=== PATIENT | male | born 1940 | race Hispanic/Latino ===

== ENCOUNTER → 2017-06-26 | Day surgery (SDC) | payer MEDICARE ==
[2017-06-20 10:11] LABS: BASOPHILS % 0.3 % (0.0-1.0); EOSINOPHILS # (AUTO) 0.3 (0.0-0.4); EOSINOPHILS % 3.6 % (0.0-6.0); HEMATOCRIT 39.7 % (38.2-49.6); LYMPHOCYTES # (AUTO) 1.3 (1.0-3.2); LYMPHOCYTES % 17.8 % (18.0-39.1); MEAN CORPUSCULAR HEMOGLOBIN 33.7 pg (28-32); MEAN CORPUSCULAR HGB CONC 35.3 g/dL (31-35); MEAN CORPUSCULAR VOLUME 95.4 fL (81-99); MONOCYTES # (AUTO) 0.6 (0.2-0.8); MONOCYTES % 8.1 % (4.4-11.3); NEUTROPHILS # (AUTO) 4.9 (2.1-6.9); NEUTROPHILS % 69.9 % (38.7-80.0); PLATELET COUNT 225 x10e3/uL (140-360); RED BLOOD COUNT 4.16 x10e6/uL (4.3-5.7); RED CELL DISTRIBUTION WIDTH 11.9 % (11.7-14.4)
[~2017-06-26] MED LIST: ASPIR-LOW81 MG; FLUTICASONE; LIDOCAINE HCL 2% LOCAL INJ 5 ML SDV VIAL INJ ONE; LOSARTAN; METOPROLOL TART50 MG PO; MIDAZOLAM HCL 2 MG/2 ML VIAL ONE; NAPROXEN; PROPOFOL IV EMULSION 10 MG/ML 50 ML VIAL ONE; VITAMIN B-12; VITAMIN D; VITAMIN E
--- OUTSIDE RECORDS SUMMARY | 2017-06-26 06:04 | XMS REPORT | Clinical Summary ---
Author Author [facility] Organization [facility] Address Unknown Phone Unavailable Care Team Providers Care Ordnance Officer Name Role Phone Kyle Pettit DO PCP Allergies No Known Allergies Current Medications Prescription Sig. Disp. Refills Start End Date Status Date losartan (COZAAR) 50 MG 10/30/19 Active tablet 16 metoprolol succinate XL 10/20/19 Active (TOPROL-XL) 50 MG 24 hr 16 tablet tamsulosin (FLOMAX) 0.4 11/18/19 Active mg capsule,extended 16 release 24hr nitrofurantoin Take 100 mg by mouth Active (MACRODANTIN) 100 MG daily. capsule aspirin (ECOTRIN) 81 MG Resume when ok with Dr 03/10/20 Active enteric coated tablet Astudillo 16 polyethylene glycol Use daily per package 03/10/20 Active (MIRALAX) 17 gram packet instructions for 16 constipation. Is over the counter VIAGRA 50 mg tablet 07/19/19 Active 17 fluticasone (FLONASE) 50 10/04/19 Active mcg/actuation nasal spray 17 vitamin E 1000 UNIT Take 1,000 Units by mouth Active capsule daily. cyanocobalamin 100 MCG Take 100 mcg by mouth Active tablet daily. cholecalciferol, vitamin Take 400 Units by mouth Active D3, (VITAMIN D3) 400 unit daily. tablet naproxen (NAPROSYN) 500 Take 1 tablet (500 mg 60 tablet 0 04/29/20 07/04/19 Discontin MG tabletIndications: total) by mouth 2 (two) 16 17 ued Adhesive capsulitis of times a day. both shoulders, Bursitis/tendonitis, shoulder acetaminophen-codeine Take 1-2 tablets by mouth 30 tablet 0 10/08/19 11/07/19 (TYLENOL WITH CODEINE #3) every 4 (four) hours as 17 17 300-30 mg per tablet needed for moderate pain for up to 30 days. acetaminophen-codeine Take 1 tablet by mouth 40 tablet 0 10/19/19 (TYLENOL WITH CODEINE #3) every 6 (six) hours as 17 17 300-30 mg per needed for moderate pain tabletIndications: for up to 10 days. Rotator cuff tear arthropathy, left meloxicam (MOBIC) 15 mg 09/27/19 02/17/20 Discontin tablet 17 17 ued finasteride (PROSCAR) 5 09/27/19 02/17/20 Discontin mg tablet 17 17 ued naproxen (NAPROSYN) 500 Take 1 tablet (500 mg 60 tablet 2 12/08/19 01/07/20 MG tabletIndications: total) by mouth 2 (two) 17 17 Primary osteoarthritis of times a day for 30 days. right knee naproxen (NAPROSYN) 500 Take 500 mg by mouth 2 02/17/20 Discontin MG tablet (two) times a day with 17 ued meals. traMADol-acetaminophen Take 1 tablet by mouth 60 tablet 0 05/05/20 05/25/19 (ULTRACET) 37.5-325 mg every 6 (six) hours as 17 18 per tablet needed for moderate pain for up to 20 days. Active Problems Problem Noted Date Complete tear of left rotator cuff 03/03/2017 Post-operative state 03/03/2017 Primary osteoarthritis of right knee 12/07/2016 Right medial knee pain 12/07/2016 Rotator cuff tear arthropathy 10/18/2016 Internal derangement of left shoulder 10/10/2016 Trochanteric bursitis of left hip 05/06/2016 Left-sided low back pain with left-sided sciatica 05/06/2016 Bursitis/tendonitis, shoulder 04/29/2016 Adhesive capsulitis of both shoulders 04/29/2016 Spinal stenosis, lumbar region, without neurogenic claudication 03/09/2016 Lumbar stenosis 02/10/2016 Synovial cyst 02/10/2016 Encounters Date Type Specialty Care Team Description 06/16/2017 Office Visit Orthopedic Surgery Joey Astudillo MD Spinal stenosis, lumbar region, without neurogenic claudication (Primary Dx) 05/25/2017 Orders Only Orthopedic Surgery Chio Ramirez Spinal stenosis of lumbar region with neurogenic claudication (Primary Dx);retirement current use of anticoagulant 05/23/2017 Office Visit Orthopedic Surgery Flavio Irizarry MD Rotator cuff syndrome of left shoulder (Primary Dx);Adhesive capsulitis of both shoulders;Internal derangement of left shoulder 05/11/2017 Hospital Radiology Joey Astudillo MD Lumbar radiculopathy Encounter 05/05/2017 Office Visit Orthopedic Surgery Joey Astudillo MD Spinal stenosis of lumbar region, unspecified whether neurogenic claudication present (Primary Dx);Left-sided low back pain with left-sided sciatica, unspecified chronicity;Lumbar radiculopathy 05/05/2017 Procedure Pass Radiology 04/25/2017 Office Visit Orthopedic Surgery Flavio Irizarry MD Post- operative state (Primary Dx);Complete tear of left rotator cuff;Adhesive capsulitis of both shoulders 04/24/2017 Orders Only Access Kris Mills MD 03/28/2017 Office Visit Orthopedic Surgery Flavio Irizarry MD Complete tear of left rotator cuff (Primary Dx);Post-operative state 03/03/2017 Office Visit Orthopedic Surgery Flavio Irizarry MD Complete tear of left rotator cuff (Primary Dx);Post-operative state 02/21/2017 Office Visit Orthopedic Surgery Flavio Irizarry MD Left rotator cuff tear arthropathy (Primary Dx) 02/18/2017 Telephone John Curran MD 02/17/2017 Telephone Palmer Gauthier MD 02/16/2017 [facility] Orthopedic Surgery Flavio Irizarry MD Encounter 02/16/2017 Orders Only Orthopedic Surgery Caro Johnson RN Complete tear of left rotator cuff (Primary Dx) 02/16/2017 Anesthesia Orthopedic Surgery Solomon Caballero MD Event 02/16/2017 Procedure Pass Orthopedic Surgery 02/16/2017 Surgery Orthopedic Surgery Flavio Irizarry MD RIGHT SHOULDER ARTHROSCOPY WITH AC JOINT RESECTION AND SUBACROMIAL DECOMPRESSION, oPEN ROTATOR CUFF REPAIR CUFF 02/02/2017 Telephone Orthopedic Surgery Caro Johnson RN 01/03/2017 Office Visit Orthopedic Surgery Flavio Irizarry MD Rotator cuff tear arthropathy, left (Primary Dx);Internal derangement of left shoulder 12/07/2016 Office Visit Orthopedic Surgery Flavio Irizarry MD Primary osteoarthritis of right knee (Primary Dx);Right medial knee pain 10/19/2016 Office Visit Orthopedic Surgery Sandi Ordoñez MD Complete rotator cuff tear of left shoulder (Primary Dx);Left-sided low back pain with left-sided sciatica, unspecified chronicity 10/18/2016 Office Visit Orthopedic Surgery Flavio Irizarry MD Rotator cuff tear arthropathy, left (Primary Dx) 10/13/2016 Hospital Radiology Flavio Irizarry MD Adhesive capsulitis of Encounter both shoulders 10/07/2016 Office Visit Orthopedic Surgery Flavio Irizarry MD Adhesive capsulitis of both shoulders (Primary Dx);Bursitis/tendonitis, shoulder;Internal derangement of left shoulder;Midline low back pain 10/07/2016 Procedure Pass Radiology 09/12/2016 Office Visit Orthopedic Surgery Joey Astudillo MD Lumbar stenosis (Primary Dx) 07/04/2016 Office Visit Orthopedic Surgery Joey Astudillo MD Lumbar stenosis (Primary Dx);Spinal stenosis, lumbar region, without neurogenic claudication after 06/25/2016 Family History Medical History Relation Name Comments Diabetes Mother Heart disease Mother Hypertension Mother Relation Name Status Comments Father Mother Social History Tobacco Use Types Packs/Day Years Used Date Former Smoker Smokeless Tobacco: Never Used Comments: quit 30 yrs ago Alcohol Use Drinks/Week oz/Week Comments Yes 1-2 beers/day Sex Assigned at Date Recorded Not on file Last Filed Vital Signs Vital Sign Reading Time Taken Blood Pressure 109/58 02/16/2017 4:20 PM CDT Pulse 69 02/16/2017 4:20 PM CDT Temperature 36.6 C (97.8 F) 02/16/2017 4:20 PM CDT Respiratory Rate 18 02/16/2017 4:20 PM CDT Oxygen Saturation 95% 02/16/2017 4:20 PM CDT Inhaled Oxygen - - Concentration Weight 70.3 kg (155 lb) 05/11/2017 3:03 PM DIORAMIST Height 160 cm (5' 3") 02/16/2017 9:37 AM CDT Body Mass Index 27.46 05/11/2017 3:03 PM DIORAMIST Plan of Treatment Date Type Specialty Care Team Description 07/04/2017 Office Visit Orthopedic Surgery Flavio Irizarry MD [address] [facility] [address] [place] [address] Health Maintenance Due Date Last Done Comments ZOSTER VACCINE 1998 PNEUMOCOCCAL-13 2003 INFLUENZA VACCINE 12/20/2016 02/02/2012, 02/24/2011, 03/05/2010, Additional history exists PNEUMOCOCCAL Completed 12/08/2006 POLYSACCHARIDE VACCINE AGE 65 AND OVER Implants Implanted Type Area Special Education Teaching Assistant Device Expiration Model / Identifier Date Serial / Lot Kit Bone Grft Lmbr Tprd 2.8ml Sm Human N/A: Spine [employer] 2017 [id number] / Infuse - [id number] - [id number] Tissue Lumbar SPINAL AND [id number] Implanted: Qty: 1 on 03/09/2016 by Implants Joey Acevedo MD [id number] Drafton Dbm Orthoblend Small Defect Human Bilateral: [employer] 2017 [id number] / 5cc - [id number] - [id number] Tissue Spine SPINAL AND [id number] Implanted: Qty: 1 on 03/09/2016 by Implants Lumbar Joey Acevedo MD [id number] Capstone Ptc [id number] - [id number] IPM Posterior: [employer] 06/22/2026 [id number] / Implanted: Qty: 1 on 03/09/2016 by IMPLANT Spine TONGAMOR ERICH / Joey Astudillo MD DEVICES Lumbar [id number] José Miguel [id number] 35mm Perc José Miguel 4.75mm IPM Posterior: [employer] [id number] Ccm - [id number] IMPLANT Spine SOFAMOR DANEK / Implanted: Qty: 1 on 03/09/2016 by DEVICES Benji / Joey Astudillo MD José Miguel [id number] 35mm Perc José Miguel 4.75mm IPM Posterior: [employer] [id number] Ccm - [id number] IMPLANT Spine SOFAMOR DANEK / Implanted: Qty: 1 on 03/09/2016 by Joey Burton MD Quattro Link Knotless Peek [place] IPM N/A: N/A [employer] 2021 CM [id number] / 4.5mm - Sn/A - [id number] IMPLANT MEDICINE n/a / Implanted: Qty: 2 on 02/16/2017 by DEVICES [id number] Flavio Irizarry MD Dermaspan Acd 5x5cm; 1.15mm - Sn/A IPM N/A: N/A [employer] 2018 [id number] - [id number] IMPLANT / Implanted: Qty: 1 on 02/16/2017 by DEVICES n/a / Flavio Irizarry MD [id number] Juggerknot 2.9 - [id number] Orthopedic N/A: N/A [employer] 2020 [id number] / Implanted: Qty: 3 on 02/16/2017 by Trauma MEDICINE / Flavio Irizarry MD Implants [id number] Screw Spinal Canltd Mul-Ax Co-Cr Ti Spinal Posterior: [employer] [id number] 4.75x6.5x40mm - [id number] Implants Spine SPINAL AND 0 / Implanted: Qty: 1 on 03/09/2016 by Lumbar BIOLOGICS / Joey Astudillo MD Screw Spinal Set Brkof Ti 4.75mm Ns Spinal Posterior: [employer] [id number] / - [id number] Implants Spine SPINAL AND / Implanted: Qty: 1 on 03/09/2016 by Lumbar BIOLOGICS Joey Astudillo MD Screw Spinal Canltd Mul-Ax Co-Cr Ti Spinal Posterior: [employer] [id number] 4.75x6.5x40mm - [id number] Implants Spine SPINAL AND 0 / Implanted: Qty: 3 on 03/09/2016 by Lumbar BIOLOGICS / Joey Astudillo MD Screw Spinal Set Brkof Ti 4.75mm Ns Spinal Posterior: [employer] [id number] / - [id number] Implants Spine SPINAL AND / Implanted: Qty: 3 on 03/09/2016 by Lumbar BIOLOGICS Joey Astudillo MD [employer] [facility] Floseal 5ml W/ Humn F2 Surgical N/A: N/A LOU [id number] / - [id number] Implants; BIOSCIENCE / Implanted: Qty: 1 on 03/09/2016 by ExpandJoey Reis MD Extenders; Surgical Wires [employer] [facility] Floseal 5ml W/ Humn F2 Surgical N/A: N/A LOU [id number] / - [id number] Implants; BIOSCIENCE / Implanted: Qty: 1 on 03/09/2016 by Expanders; Joey Astudillo MD Extenders; Surgical Wires Kit Instru Soft [place] 2.9mm Surgical N/A: N/A [employer] 2021 [id number] / Larry - [id number] Implants; MEDICINE / Implanted: Qty: 1 on 02/16/2017 by Expanders; [id number] Flavio Irizarry MD Extenders; Surgical Wires Quattro Suture Passer Needle Suture N/A: N/A [facility] 06/21/2019 - [id number] / Implanted: Qty: 1 on 02/16/2017 by oNoise. / [place] [id number] Quattro Suture Passer Needle Suture N/A: N/A [facility] 06/21/2019 - [id number] / Implanted: Qty: 1 on 02/16/2017 by oNoise. / Flavio Irizarry MD [id number] Procedures Procedure Name Priority Date/Time Associated Diagnosis Comments ARTERIAL LINE Routine 02/16/2017 11:42 AM CDT Procedure Note - Nohemi Russ CRNA - 02/16/2017 11:41 AM CDT Arterial line Performed by: SAMARIA WRIGHT Authorized by: SAMARIA WRIGHT Patient Location: OR Start Time: 02/16/2017 11:37 AM End Time: 02/16/2017 11:40 AM Pre-proced ure: patient identified , IV checked, site and side verified, risks and benefits discussed, procedure verified, surgical consent complete, patient position confirmed, monitors and equipment checked and pre-op evaluation complete MSBT: antiseptic used and hand hygiene performed TIme Out Performed: 02/16/2017 11:30 AM Indication s: Indication s: hemodynami c monitoring Anesthesia : Anesthesia : General Procedure Details: Arterial Line placement: Placed post induction Line placement site: Radial Line placement side: Right Arterial line gauge: 20 G Number of attempts: 1 Ultrasound guidance used: No Post-proce dure: Post-proce dure: Sterile dressing applied Post procedure circulatio n, sensation, movement: Unchanged Patient tolerance: Patient tolerated the procedure well with no immediate complicati ons VA AN PERIPHERAL BLOCK Routine 02/16/2017 PROCEDURE FOR PAIN 10:50 AM CDT Procedure Note - Solomon Caballero MD - 02/16/2017 10:49 AM CDT Peripheral Block Performed by: SOLOMON CABALLERO Authorized by: SOLOMON CABALLERO Patient Location: Block room Reason for Block: at surgeon's request, post-op pain management , procedure for pain Staff: Syed post: SOLOMON CABALLERO Performed by: Syed post Preprocedu re: patient identified , IV checked, site and side verified, risks and benefits discussed, procedure verified, surgical consent complete, patient position confirmed, monitors and equipment checked, pre-op evaluation complete and site marked Peripheral Nerve Block: Patient Position: Supine Prep: ChloraPrep Monitoring : Blood pressure monitoring , continuous pulse oximetry and heart rate Block Type: Interscale ne Laterality : Left Injection Technique: Catheter insertion Procedures : ultrasound guided Ultrasound documentat ion: Images saved on hard disk and printed/pl aced in chart Local Infiltrati on (See MAR for details): Ropivacain e Needle: Needle Type: Pajunk Needle Length: 10 cm Catheter at Skin Depth: 6 cm Assessment : Injection Assessment : Visualized needle/loc al anesthetic surroundin g nerve, intermitte nt aspiration during local anesthetic administra tion, visualized pertinent vascular structures and nerves, no symptoms of intraneura l/intraven ous injection and needle tip visualized at all times during injection of medication Paresthesi a Pain: None Heart Rate Change: No Slow Fractionat ed Injection: Yes Block outcome: No apparent complicati ons, patient comfortabl e and patient tolerated procedure well VA AN PERIPHERAL BLOCK Routine 02/16/2017 POST-OP PAIN 10:50 AM CDT Procedure Note - Solomon Caballero MD - 02/16/2017 10:49 AM CDT Peripheral Block Performed by: SOLOMON CABALLERO Authorized by: SOLOMON CABALLERO Patient Location: Block room Reason for Block: at surgeon's request, post-op pain management , procedure for pain Staff: Syed post: SOLOMON CABALLERO Performed by: Syed post Preprocedu re: patient identified , IV checked, site and side verified, risks and benefits discussed, procedure verified, surgical consent complete, patient position confirmed, monitors and equipment checked, pre-op evaluation complete and site marked Peripheral Nerve Block: Patient Position: Supine Prep: ChloraPrep Monitoring : Blood pressure monitoring , continuous pulse oximetry and heart rate Block Type: Interscale ne Laterality : Left Injection Technique: Catheter insertion Procedures : ultrasound guided Ultrasound documentat ion: Images saved on hard disk and printed/pl aced in chart Local Infiltrati on (See MAR for details): Ropivacain e Needle: Needle Type: Pajunk Needle Length: 10 cm Catheter at Skin Depth: 6 cm Assessment : Injection Assessment : Visualized needle/loc al anesthetic surroundin g nerve, intermitte nt aspiration during local anesthetic administra tion, visualized pertinent vascular structures and nerves, no symptoms of intraneura l/intraven ous injection and needle tip visualized at all times during injection of medication Paresthesi a Pain: None Heart Rate Change: No Slow Fractionat ed Injection: Yes Block outcome: No apparent complicati ons, patient comfortabl e and patient tolerated procedure well RIGHT SHOULDER 02/16/2017 RECURRENT LEFT ROTATOR ARTHROSCOPY WITH AC JOINT 10:30 AM CDT CUFF TEAR M75.12 RESECTION AND SUBACROMIAL DECOMPRESSION, oPEN ROTATOR CUFF REPAIR CUFF Case Notes @[facility] 02/15/17TW Special Needs EST 2.5HRS, CONTINUOUS INTERSCALE NE BLOCK FOR HOME, [facility] ANCHORS, [facility] BMA, GRAFT JACKET VA ARTHROCENTESIS Routine 12/07/2016 Primary osteoarthritis of Results for this ASPIR&/INJ MAJOR JT/BURSA 1:00 PM CDT right knee procedure are in the W/O US results section. VA ARTHROCENTESIS Routine 10/14/2016 Adhesive capsulitis of Results for this ASPIR&/INJ MAJOR JT/BURSA 8:24 AM CDT both shoulders procedure are in the W/O US Bursitis/tendonitis, results section. shoulder Internal derangement of left shoulder after 06/25/2016 Results * Partial thromboplastin time, activated (05/26/2017 10:14 AM) Component Value Ref Range PTT 26 22 - 34 sec Comment: This test has not been validated for monitoring unfractionated heparin therapy. For testing that is validated for this type of therapy, please refer to the Heparin Anti-Xa assay (test code 40432). For additional information, please refer to http://education.ArthaYantra/faq/ACG810 (This link is being provided for informational/educational purposes only.) Specimen Performing Laboratory [facility] Narrative FASTING:NO FASTING: NO * Prothrombin time with INR (05/26/2017 10:14 AM) Component Value Ref Range INR 1.1 Comment: Reference Range 0.9-1.1 Moderate-intensity Warfarin Therapy 2.0-3.0 Higher-intensity Warfarin Therapy 3.0-4.0 Prothrombin time 11.2 9.0 - 11.5 sec Comment: For more information on this test, go to: http://education.Climateminder/faq/LZK180 Specimen Performing Laboratory [facility] Narrative FASTING:NO FASTING: NO * MRI Lumbar Spine W Wo Contrast (05/11/2017 3:54 PM) Specimen Performing Laboratory [facility] [address] [place] [address] Narrative EXAMINATION:MRI LUMBAR SPINE W WO CONTRAST CLINICAL HISTORY:M54.16 Radiculopathylumbar region, low back pain COMPARISON:MRI of the lumbar spine dated dated January 21, 2016 TECHNIQUE: Multiplanar MRI imaging with and withoutIV Gadolinium was performed. FINDINGS: There is a posterior fusion with bilateral pedicle screws and rods between L4 on 5 levels with posterior laminectomy changes. There is minimal retrolisthesis of L3 on L4 level. Vertebral bodies are preserved. Bone marrow is unremarkable with no evidence of acute fracture or suspicious marrow-replacing lesion. . The distal spinal cord appears unremarkable. The conus medullaris terminates at the L1 level and appears unremarkable. L1-2: Diffuse disc bulge with bilateral facet arthropathy. No canal stenosis or foramina narrowing. L2-3: Diffuse disc bulge with bilateral facet arthropathy. There is minimal canal stenosis with no foraminal narrowing. L3-4: Diffuse disc bulge with central broad-based disc protrusion. There is bilateral facet arthropathy and ligamentous hypertrophy. There is a moderate to severe canal stenosis with the potential impingement of the cauda equina. There is a mild retrolisthesis of L3 on L4 level. There is mild bilateral foraminal narrowing. L4-5: Posterior laminectomy with the posterior fusion as described. The intervertebral disc graft appears to be in the left posterolateral region of the disc with evidence of enhancing postsurgical scar in the left epidural space and left foramen potentially encasing the exiting left L4 and traversing left L5 nerve roots. There is no canal stenosis. L5-S1: Mild bilateral facet arthropathy with the ligamentous thickening asymmetric to the right side. There is diffuse disc bulge with central shallow broad-based disc protrusion. There is mild canal stenosis with moderate bilateral lateral recess narrowing. There is moderate severe left foraminal narrowing with potential mass effect on the exiting left L5 nerve root. Mild right foramen is appreciated. Visualized paraspinal soft tissues are unremarkable. IMPRESSION: Posterior fusion between L4 and L5 level with evidence of superjacent and subjacent segment disease at L3-L4 and L5-S1 levels as described. There is moderate to severe canal stenosis at L3-L4 level. There is severe left foraminal narrowing at L5-S1 level. Postoperative changes at L4-L5 level as described with enhancing postsurgical enhancing scar in the left lateral recess and left foramen. [id number] Procedure Note Hm Interface, Radiology Results Incoming - 05/11/2017 4:50 PM DIORAMIST EXAMINATION: MRI LUMBAR SPINE W WO CONTRAST CLINICAL HISTORY: M54.16 Radiculopathy lumbar region, low back pain COMPARISON: MRI of the lumbar spine dated dated January 21, 2016 TECHNIQUE: Multiplanar MRI imaging with and without IV Gadolinium was performed. FINDINGS: There is a posterior fusion with bilateral pedicle screws and rods between L4 on 5 levels with posterior laminectomy changes. There is minimal retrolisthesis of L3 on L4 level. Vertebral bodies are preserved. Bone marrow is unremarkable with no evidence of acute fracture or suspicious marrow-replacing lesion. . The distal spinal cord appears unremarkable. The conus medullaris terminates at the L1 level and appears unremarkable. L1-2: Diffuse disc bulge with bilateral facet arthropathy. No canal stenosis or foramina narrowing. L2-3: Diffuse disc bulge with bilateral facet arthropathy. There is minimal canal stenosis with no foraminal narrowing. L3-4: Diffuse disc bulge with central broad-based disc protrusion. There is bilateral facet arthropathy and ligamentous hypertrophy. There is a moderate to severe canal stenosis with the potential impingement of the cauda equina. There is a mild retrolisthesis of L3 on L4 level. There is mild bilateral foraminal narrowing. L4-5: Posterior laminectomy with the posterior fusion as described. The intervertebral disc graft appears to be in the left posterolateral region of the disc with evidence of enhancing postsurgical scar in the left epidural space and left foramen potentially encasing the exiting left L4 and traversing left L5 nerve roots. There is no canal stenosis. L5-S1: Mild bilateral facet arthropathy with the ligamentous thickening asymmetric to the right side. There is diffuse disc bulge with central shallow broad-based disc protrusion. There is mild canal stenosis with moderate bilateral lateral recess narrowing. There is moderate severe left foraminal narrowing with potential mass effect on the exiting left L5 nerve root. Mild right foramen is appreciated. Visualized paraspinal soft tissues are unremarkable. IMPRESSION: Posterior fusion between L4 and L5 level with evidence of superjacent and subjacent segment disease at L3-L4 and L5-S1 levels as described. There is moderate to severe canal stenosis at L3-L4 level. There is severe left foraminal narrowing at L5-S1 level. Postoperative changes at L4-L5 level as described with enhancing postsurgical enhancing scar in the left lateral recess and left foramen. [id number] * Estimated GFR (05/11/2017 3:16 PM) Component Value Ref Range GFR Non Af Amer 81 mL/min/1.73 m2 GFR Af Amer >90 mL/min/1.73 m2 Comment: Chronic kidney disease: <60 mL/min/1.73m2 Kidney failure: <15 mL/min/1.73m2 The estimated GFR is calculated from the IDMS-traceable Modification of Diet in Renal Disease Equation. The accuracy of the calculation is poor when the creatinine is normal. Calculated values >90 mL/min/1.73m2 are not reported. This equation has not been validated in children (<18 years), women, the elderly (>70 years), or ethnic groups other than Caucasians and Americans. Specimen Performing Laboratory Plasma specimen [facility] DEPARTMENT OF PATHOLOGY AND GENOMIC MEDICINE [address] [place] [phone] * Creatinine level (05/11/2017 3:16 PM) Component Value Ref Range Creatinine 0.9Comment: Testing performed on the ISTAT 0.7 - 1.2 mg/dL instrument by RN [id number]. Specimen Performing Laboratory Plasma specimen [facility] DEPARTMENT OF PATHOLOGY AND GENOMIC MEDICINE [address] [place] [id number] * XR Lumbar Spine 2 Or 3 Vw (05/05/2017 10:47 AM) Only the most recent of 3 results within the time period is included. Specimen Performing Laboratory [facility] [address] [place] [id number] Narrative X-ray show solid fusion at L4-5. Progressive degeneration at L3-4 when compared to prior x-rays * Miscellaneous Imaging Result (04/24/2017) Specimen Performing Laboratory Blood * Large Joint Arthrocentesis (12/07/2016 1:00 PM) Narrative Flavio Irizarry MD 12/07/20161:00 PM Large Joint Arthrocentesis Consent given by: patient Supporting Documentation Indications: pain Procedure Details Ultrasound guided: no Location: knee - R knee Right side: Needle size (right): 25G. Approach: anterolateral Right knee medications administered: 2 mL lidocaine 10 mg/mL (1 %); 3 mg betamethasone acet,sod phos 6 mg/mL (3mg betamethasone acet, sod phos 3mg/ml) Patient tolerance: patient tolerated the procedure well with no immediate complications * XR Knee 1 Or 2 Vw Right (12/07/2016 10:44 AM) Specimen Performing Laboratory [facility] [place] [id number] Narrative Moderate to advanced diffuse degenerative changes * Large Joint Arthrocentesis (10/14/2016 8:24 AM) Narrative Flavio Irizarry MD 10/14/20168:24 AM Large Joint Arthrocentesis Consent given by: patient Supporting Documentation Indications: pain Procedure Details Ultrasound guided: no Location: shoulder - L glenohumeral Left side: Needle size (left): 25 G. Approach: posterior Left shoulder medications administered: 1 mL lidocaine 10 mg/mL (1 %); 3 mg betamethasone acet,sod phos 6 mg/mL (3mg betamethasone acet, sod phos 3mg/ml) Patient tolerance: patient tolerated the procedure well with no immediate complications * MRI Shoulder Wo Contrast Left (10/13/2016 1:23 PM) Specimen Performing Laboratory [facility] [address] [place] [id number] Narrative EXAMINATION:MRI SHOULDER WO CONTRAST LEFT CLINICAL HISTORY:M75.01 Adhesive capsulitis of right shoulder, M75.02 Adhesive capsulitis of left shoulder, left shoulder pain TECHNIQUE:Multiplanar multisequence MR imaging of the left shoulder was performed without contrast. COMPARISON:None. IMPRESSION: ROTATOR CUFF: There are postoperative changes present. There is a re-tear of the supraspinatus tendon, which appears retracted approximately 2 cm. There is at least a partial thickness re-tear of the infraspinatus tendon, but the areas obscured by metal artifacts. There is a edema in the infraspinatus muscle belly, consistent with strain. There is a severe partial tear of the subscapularis tendon. The teres minor tendon is intact. LABRUM: No tear appreciated. BICEPS TENDON: Probably status post tenodesis; correlate with surgical history. Not visualized within the joint space. AC JOINT: Degenerative changes. There is an os acromiale. GLENOHUMERAL JOINT: Mild chondromalacia. No effusion or synovitis. BONE MARROW: Postoperative changes. No fracture. SOFT TISSUES: Postoperative changes. Small amount of fluid in the subacromial- subdeltoid bursa. [facility]-[id number] Procedure Note Interface, Radiology Results Incoming - 10/13/2016 5:05 PM CDT EXAMINATION: MRI SHOULDER WO CONTRAST LEFT CLINICAL HISTORY: M75.01 Adhesive capsulitis of right shoulder, M75.02 Adhesive capsulitis of left shoulder, left shoulder pain TECHNIQUE: Multiplanar multisequence MR imaging of the left shoulder was performed without contrast. COMPARISON: None. IMPRESSION: ROTATOR CUFF: There are postoperative changes present. There is a re-tear of the supraspinatus tendon, which appears retracted approximately 2 cm. There is at least a partial thickness re-tear of the infraspinatus tendon, but the areas obscured by metal artifacts. There is a edema in the infraspinatus muscle belly, consistent with strain. There is a severe partial tear of the subscapularis tendon. The teres minor tendon is intact. LABRUM: No tear appreciated. BICEPS TENDON: Probably status post tenodesis; correlate with surgical history. Not visualized within the joint space. AC JOINT: Degenerative changes. There is an os acromiale. GLENOHUMERAL JOINT: Mild chondromalacia. No effusion or synovitis. BONE MARROW: Postoperative changes. No fracture. SOFT TISSUES: Postoperative changes. Small amount of fluid in the subacromial- subdeltoid bursa. [facility]-[id number] * XR Shoulder 2+ Vw Left (10/07/2016 2:14 PM) Specimen Performing Laboratory [facility] [address] [place] [place] [address] Narrative Evidence of previous decompression and rotator cuff repair with irregularity of the amanda connector joint, irregularity greater tuberosity and an undersurface of the acromion. Metal suture anchor in place. after 06/25/2016 Insurance Payer Benefit Subscriber ID Type Phone Address Plan / Group HUMANA[employer]is [employer] MEDICARE HUMANA [id number] PPO MEDICARE PPO/PFFS/E [facility] Home: [address] [place] [phone]
--- NOTE | 2017-06-26 10:25 | Operative Report ---
DATE OF PROCEDURE: June 26, 2017 REFERRING PHYSICIAN: Dr. Marcell Pettit. PREOPERATIVE DIAGNOSIS: POSTOPERATIVE DIAGNOSIS: PROCEDURE PERFORMED: Colonoscopy and polypectomy. INDICATIONS FOR COLONOSCOPY: Colorectal cancer screening. MEDICATION: Patient was done under MAC. Please see anesthesiologist's note. PROCEDURE: With the patient in lateral decubitus position, flexible fiberoptic Olympus colonoscope was inserted into the rectum with ease and advanced all the way to the cecum. Diverticular disease was noted pretty much throughout the colon. Two polyps were hot biopsied from the cecum. One polyp was hot biopsied from the ascending colon. The transverse and descending other than for diverticular disease appeared to be within normal limits. One polyp was snared from the sigmoid colon. The rectum appeared to be within normal limits. The scope was then retroflexed into the distal rectum and moderate-sized internal hemorrhoids were noted, none of which was actively bleeding. The scope was then straightened out and was subsequently withdrawn. Patient tolerated the procedure well. IMPRESSION 1. Carrillo diverticulosis. 2. Cecal polyps, hot biopsied x 2. 3. Ascending colon polyp, hot biopsied x 1. 4. Sigmoid colon polyp, snared x 1. 5. Internal hemorrhoids, none actively bleeding. PLAN: Followup histology. Initiate high-fiber, low-fat diet. Initiate high-fiber supplement. Patient will need followup colonoscopy in 3 years. Job#: [id number] FARIDA cc:Marcell Pettit DO
== END | disposition home or self-care (01) ==
LOC: OR 06:01
PROVIDERS: ATTEND Internal Medicine Gastroenterology
DX: Z12.11 Encounter for screening for malignant neoplasm of colon (principal); D12.5 Benign neoplasm of sigmoid colon; K57.30 Diverticulosis of large intestine without perforation or abscess without bleeding; K64.8 Other hemorrhoids; I10 Essential (primary) hypertension; R00.1 Bradycardia, unspecified; Z01.810 Encounter for preprocedural cardiovascular examination; Z01.812 Encounter for preprocedural laboratory examination; Z68.26 Body mass index [BMI] 26.0-26.9, adult
CPT/HCPCS: 36415; 45384; 45385; 85025; 88305; 93005; J2001; J2250

== ENCOUNTER 2020-04-12 18:06 | Emergency (ER) | payer MEDICARE ==
[~2020-04-12] VITALS: Ht 160 cm; Wt 66.7 kg
[~2020-04-12 18:06] MED LIST changes: +CYCLOBENZAPRINE5 MG PO; +FOLIC ACID PO; +IRON PO; -LIDOCAINE HCL 2% LOCAL INJ 5 ML SDV VIAL INJ ONE; +MELOXICAM15 MG PO; -MIDAZOLAM HCL 2 MG/2 ML VIAL ONE; -PROPOFOL IV EMULSION 10 MG/ML 50 ML VIAL ONE; +VIT B6 PO
--- NOTE | 2020-04-12 18:18 | Emergency Department Note ---
History of Present Illnes History of Present Illness Chief Complaint: Laceration History of Present Illness This is a 79 year old male s/p fall mechanical with resultant head lac eratoin Historian: Patient, Family Member Arrival Mode: Car Strike Off Machine Operator Required: No Onset (how long ago): minute(s) Location: scalp Radiation: Reports non-radiation Severity: moderate Onset quality: sudden Duration (how long): hour(s) Timing of current episode: constant Progression: unchanged Chronicity: new Context: Reports trauma/injury Relieving factors: none Exacerbating factors: none Associated symptoms: Reports denies other symptoms Treatments prior to arrival: none Past Medical/Family History Physician Review I have reviewed the patient's past medical and family history. Any updates have been documented here. Past Medical History Recent Fever: No Clinical Suspicion of Infectio: No New/Unexplained Change in Ment: No Past Medical History: Hypertension, GERD, Chronic Back Pain Other Medical History: CARPAL TUNNEL NEUROPATHY Past Surgical History: Back Surgery Other Surgery: BILATERAL ROTATOR CUFFS TURP Social History Smoking Cessation: Never Smoker Alcohol Use: None Any Illegal Drug Use: No Other Last Tetanus: UKN Review of Systems Review of Systems Constitutional: Reports no symptoms EENTM: Reports no symptoms Cardiovascular: Reports no symptoms Respiratory: Reports no symptoms Gastrointestinal: Reports no symptoms Genitourinary: Reports no symptoms Musculoskeletal: Reports no symptoms Integumentary: Reports no symptoms Neurological: Reports headache Psychological: Reports no symptoms Endocrine: Reports no symptoms Hematological/Lymphatic: Reports no symptoms Physical Exam Related Data Allergies: Coded Allergies: No Known Allergies (Unverified , 05/24/19) Vital signs reviewed: Yes Physical Exam CONSTITUTIONAL Constitutional: Present well-developed, Present well-nourished HENT HENT: Present normocephalic, Present atraumatic, Present oropharynx clear/moist, Present nose normal HENT L/R: Present left ext ear normal, Present right ext ear normal EYES Eyes: Reports PERRL, Reports conjunctivae normal NECK Neck: Present ROM normal PULMONARY Pulmonary: Present effort normal, Present breath sounds normal CARDIOVASCULAR Cardiovascular: Present regular rhythm, Present heart sounds normal, Present capillary refill normal, Present normal rate GASTROINTESTINAL Abdominal: Present soft, Present nontender, Present bowel sounds normal GENITOURINARY Genitourinary: Present exam deferred SKIN Skin: Present other (12 cm Y shaped scalp laceration with active hemorrhage) MUSCULOSKELETAL Musculoskeletal: Present ROM normal NEUROLOGICAL Neurological: Present alert, Present oriented x 3, Present no gross motor or sensory deficits PSYCHOLOGICAL Psychological: Present mood/affect normal, Present judgement normal Results Laboratory Lab results reviewed: Yes Laboratory comments Laboratory Tests Test 04/12/20 20:51 04/12/20 20:50 04/12/20 20:36 White Blood Count 8.26 x10e3/uL (4.8-10.8) Red Blood Count 3.99 x10e6/uL (4.3-5.7) Hemoglobin 13.4 g/dL (14.0-18.0) Hematocrit 36.8 % (38.2-49.6) Mean Corpuscular Volume 92.2 fL (81-99) Mean Corpuscular Hemoglobin 33.6 pg (28-32) Mean Corpuscular Hemoglobin Concent 36.4 g/dL (31-35) Red Cell Distribution Width 11.6 % (11.7-14.4) Platelet Count 241 x10e3/uL (140-360) Neutrophils (%) (Auto) 79.0 % (38.7-80.0) Lymphocytes (%) (Auto) 13.9 % (18.0-39.1) Monocytes (%) (Auto) 5.9 % (4.4-11.3) Eosinophils (%) (Auto) 0.6 % (0.0-6.0) Basophils (%) (Auto) 0.2 % (0.0-1.0) Neutrophils # (Auto) 6.5 (2.1-6.9) Lymphocytes # (Auto) 1.2 (1.0-3.2) Monocytes # (Auto) 0.5 (0.2-0.8) Eosinophils # (Auto) 0.1 (0.0-0.4) Basophils # (Auto) 0.0 (0.0-0.1) Absolute Immature Granulocyte (auto 0.03 x10e3/uL (0-0.1) Sodium Level 124 mmol/L (136-145) Potassium Level 4.1 mmol/L (3.5-5.1) Chloride Level 93 mmol/L (98-107) Carbon Dioxide Level 21 mmol/L (22-29) Anion Gap 14.1 mmol/L (8-16) Blood Urea Nitrogen 10 mg/dL (7-26) Creatinine 0.82 mg/dL (0.72-1.25) Estimat Glomerular Filtration Rate > 60 ML/MIN (60-) BUN/Creatinine Ratio 12 (6-25) Glucose Level 92 mg/dL (74-118) Calcium Level 8.6 mg/dL (8.4-10.2) Total Bilirubin 1.3 mg/dL (0.2-1.2) Aspartate Amino Transf (AST/SGOT) 23 IU/L (5-34) Alanine Aminotransferase (ALT/SGPT) 17 IU/L (0-55) Alkaline Phosphatase 59 IU/L (40-150) Total Protein 7.2 g/dL (6.5-8.1) Albumin 4.4 g/dL (3.5-5.0) Globulin 2.8 g/dL (2.3-3.5) Albumin/Globulin Ratio 1.6 (0.8-2.0) Prothrombin Time 13.2 seconds (11.9-14.5) Prothromb Time International Ratio 0.95 Coronavirus (PCR) Not detected (NOTDETECTED) Imaging Imaging results reviewed: Yes Impressions [place] [address] Patient Name: BRONSON MOHAN MR #: [id number] : 1940 Age/Sex: 79/M Req #: [id number] Adm Physician: Ordered by: NATALIE STANLEY DO Report #: [id number] Location: ER Room/Bed: Procedure: [id number] CT/CT BRAIN WO Exam Date: 04/12/20 Exam Time: 1929 REPORT STATUS: Signed Exam: Head CT without contrast History: Trauma Comparison studies: None Technique: Axial images were obtained from the skull base to the vertex. Coronal and sagittal images reconstructed from the axial data. Dose modulation, iterative reconstruction, and/or weight based adjustment of the mA/kV was utilized to reduce the radiation dose to as low as reasonably achievable. Radiation dose: Total DLP: 921.4 mGy*cm. Estimated effective dose: DLP x 0.015 Intravenous contrast: None Findings: Scalp: An acute scalp hematoma and laceration centered in the left paramedian parieto-occipital scalp is with overlying surgical lisa in place. No retained hyperdense foreign body. Bones: No fractures, blastic or lytic lesions. Brain sulci: Moderately prominent. Ventricles: An acute 1.2 cm hyperdense hemorrhage is adherent to the ependymal surface of the body of the left lateral ventricle. Small-volume hyperdense hemorrhage also present in the frontal horn of the left lateral ventricle. There is moderate compensatory dilatation of the ventricles due to generalized volume loss. No hydrocephalus at this time. Extra-axial spaces: No masses, no fluid collection. Parenchyma: No mass or acute or chronic cortical insults. Ill-defined and confluent hypodensities in the supratentorial white matter are nonspecific but are most compatible with chronic microvascular ischemic changes. Sellar/suprasellar region: No abnormalities. Craniocervical junction: Patent foramen magnum. No Chiari one malformation. Incidental findings: Chronic inflammatory changes in the right mastoids. Atherosclerotic calcifications in the carotid siphons in the left intradural vertebral artery. IMPRESSION: 1. Left paramedian parieto-occipital scalp hematoma and laceration. No retained hyperdense foreign body or fracture. 2. Acute small volume intraventricular hemorrhage. No hydrocephalus. 3. Moderate generalized parenchymal volume loss. 4. Moderate chronic microvascular ischemic changes. Findings discussed with Dr. Stanley at 8:14 PM on 04/12/2020. Signed by: Dr. Angie Mason M.D. on 04/12/2020 8:26 PM Dictated By: ANGIE MASON MD 25 Transcribed By: LOS on 04/12/202025 COPY TO: NATALIE STANLEY DO~ Procedures 12 Lead ECG Interpretation ECG Interpretation : ECG: ECG 1 Strike Off Machine Operator: Interpreted by ED physician Date: Apr 12, 2020 Time: 20:50 Prior ECG tracings: reviewed Rhythm: sinus rhythm Rate: normal BPM: 71 QRS axis: normal ST segments normal: Yes T waves normal: Yes Clinical Impression: normal ECG Laceration Laceration: Laceration 1 Site: scalp Side: left Size (cm): 12 Description: irregular, other (Y shaped) Depth: simple, single layer Local anesthesia: lidocaine 1% Amount of anesthesia (mL): 3 Pre-repair: wound exposed Skin layer closed with: nylon Size (cm): 3-0 Number of sutures: 10 Technique: simple, interrupted Additional comments 4 lisa were used Critical Care Time Total Critical Care Time (min): 31 Critcal care necessary due to: EMERGENCY MEDICINE NURSE PRACTITIONER failure or compromise Critcal care time spent by me: develop tx plan w patient/surrogate, discussion w consultants, discussion w primary provider, evaluation patient response to tx, examination of patient, obtaining hx from patient/surrogate, order/perform tx or interventions, order/review laboratory studies, order/review radiographic studies Assessment & Plan Medical Decision Making MDM Diff Dx: SDH, Epidural hematoma, SAH, skull fx, Hemorrhagic shock, ACS, arrythmia Reassessment Reassessment time: 21:13 Reassessment S/W Dr Herbert Assessment & Plan Final Impression: (1) Intraventricular hemorrhage (2) Scalp laceration (3) Open wound of scalp, complicated (4) Hyponatremia Depart Disposition: TRANS TO OTHER [facility] Home Meds Reported Medications Cyclobenzaprine Hcl (FLEXERIL) 5 Mg Tablet, PO TID 05/24/19 [Iron] No Conflict Check, 25 MG PO BID 05/24/19 [Folic Acid] No Conflict Check, PO DAILY 05/24/19 [Vit B6] No Conflict Check, PO DAILY 05/24/19 Meloxicam (MELOXICAM) 15 Mg Tablet, 15 MG PO DAILY 05/24/19 [Vitamin D] No Conflict Check, 2000 INTLU DAILY 06/23/17 [Vitamin E] No Conflict Check, 1000 INTLU DAILY 06/23/17 [Vitamin B-12] No Conflict Check, DAILY 06/23/17 [Fluticasone] No Conflict Check, 50 MG PRN 06/23/17 Aspirin (ASPIR-LOW) 81 Mg Tablet., DAILY 06/23/17 [Losartan] No Conflict Check, 50 MG DAILY 06/23/17 NATALIE STANLEY DO Apr 12, 2020 18:18
[2020-04-12] MEDS: LIDOCAINE 1% 5ML-MPF INJ ONE (18:30)
--- OUTSIDE RECORDS SUMMARY | 2020-04-12 18:30 | XMS REPORT | Continuity of Care Document ---
Author Author [facility] t Organization [facility] Address [address] [place] [address] Phone Unavailable Care Team Providers Care Patient Services Assistant Name Role Phone ANGIE GARSIA DO PCP MARK, SOUHEIL Attphys Unavailable MARKREJI Dhillon Attphys Unavailable Ramírez Astudillo MD Attphys MARK, SOUHEIL Admphys Unavailable Payers Payer Name Policy Type Policy Number Effective Date Expiration Date [facility] HU[facility]NA MEDICAREHUMANA MEDICARE PPO/PFFS/ERS [id number] [id number] 2016 00:00:00 Christos Young Problems Condition Name Condition Details Condition Category Status Onset Date Resolution Date Last Treatment Date Treating Clinician Comments Source Spondylolisthesis of lumbar region Spondylolisthesis of lumbar r egion Disease Active 2018-10-26 00:00:00 Linwood palacios [employer] 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 2017-10-31 00:00:00 Christos Young Arthritis of left hand Arthritis of left hand Disease Active 2017-09-19 00:00:[address] Dupuytren's contracture of right hand Dupuytren's contractur e of right hand Disease Active 2017-09-11 00:00:00 Christos Cruzist Trigger finger, right index finger Trigger finger, right index f declan Disease Active 2017-09-11 00:00:00 José Antoniot on Yaz[employer]ism Mass of left hand Mass of left hand Disease Active 2017-09-11 00:00:00 Christos Young Complete tear of left rotator cuff Complete tear of left rotator cuff Disease Active 2017-03-03 00:00:00 José Antoniojo Young Post-operative state Post-operative state Disease Active 00:00:00 Christos Young Primary osteoarthritis of right knee Primary osteoarthritis of right knee Disease Active 2016-12-07 00:00:00 Christos Young Right medial knee pain Right medial knee pain Disease Active 2016-12-07 00:00:00 Christos beal 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 Disease Active 2016-10-18 00:00:00 Christos Young Internal derangement of left shoulder Internal derangement o f left shoulder Disease Active 2016-10-10 00:00:00 Christos Young Trochanteric bursitis of left hip Trochanteric bursitis of left hip Disease Active 2016-05-06 00:00:00 Linwood philip [employer] Left-sided low back pain with left-sided sciatica Left -sided low back pain with left-sided sciatica Disease Active 2016-05-06 00:00:00 Christos Young Bursitis/tendonitis, shoulder Bursitis/tendonitis, shoulder Disease Active 2016-04-29 00:00:00 Christos Young Adhesive capsulitis of 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 Family History Family Member Diagnosis Comments Start Date Stop Date Source Natural brother Heart attack Christos Young Natural mother Diabetes [facility] Natural mother Heart disease Christos Young Natural mother Hypertension Christos Young Natural son Cancer [facility] Social History Social Habit Start Date Stop Date Quantity Comments Source Sex Assigned At Kait muñiz Yazidism Cigarettes smoked current (pack per day) - Reported 00:00:00 2019-03-18 00:00:00 Christos Young Tobacco use and exposure 2019-03-18 00:00:00 2019-03-18 00:00:00 Robb burns used Christos Young Alcohol intake 2019-03-18 00:00:00 2019-03-18 00:00:00 Current drinker of alcohol (finding) Christos Young Tobacco Comment 2016-03-08 00:00:00 2016-03-08 00:00:00 quit 30 yrs a go Christos Young Alcohol Comment 2016-03-08 00:00:00 2016-03-08 00:00:00 1-2 beers/day Christos Young History of tobacco use 1998-06-20 00:00:00 Current smoker Christos Young Smoking Status Start Date Stop Date Source Former smoker 2019-03-18 00:00:00 2019-03-18 00:00:00 Christos Young Medications Ordered Medication Name Filled Medication Name Start Date Stop Da te Current Medication? Ordering Clinician Indication Dosage Frequency Signature (SIG) Comments Components Source nitrofurantoin (MACRODANTIN) 100 MG capsule 2018-12-07 13:24:17 Yes 100mg QD Take 100 mg by mouth daily. Christos Young vitamin E 1000 UNIT capsule 2018-12-07 13:24:17 Yes 1000U QD Take 1,000 Units by mouth daily. Christos Young cyanocobalamin 100 MCG tablet 2018-12-07 13:24:17 Yes 100ug QD Take 100 mcg by mouth daily. Christos Young cholecalciferol, vitamin D3, (VITAMIN D3) 400 unit tablet 2018-12-07 13:24:17 Yes 400U QD Take 400 Units by mouth daily. Christos Young gabapentin (NEURONTIN) 300 mg capsule 2018-11-28 00:00:00 Yes Peripheral axonal neuropathy 300mg Q.[id number] Take 1 capsule (3 00 mg total) by mouth 3 (three) times a day. Christos quijano fluticasone (FLONASE) 50 mcg/actuation nasal spray 2016-09 00:00:00 Yes Christos Ireland thdejanst VIAGRA 50 mg tablet 2016-07-19 00:00:00 Yes Christos Young polyethylene glycol (MIRALAX) 17 gram packet 2016-03-10 00:00:00 Yes Use daily per package instructions for constipation. Is over the counter Christos Young tamsulosin (FLOMAX) 0.4 mg capsule,extended release 24hr 2015-11-18 00:00:00 Yes Christos Young metoprolol succinate XL (TOPROL-XL) 50 MG 24 hr tablet 2015-10-20 00:00:00 Yes Christos osorio Aspirin (Aspir-Low) 81 Mg Tablet. Aspirin (Aspir-Low) 81 Mg Tablet. Yes Daily [facility] Cyclobenzaprine Hcl (Flexeril) 5 Mg Tablet Cyclobenzap rine Hcl (Flexeril) 5 Mg Tablet Yes Three Times A Day C HI [facility] Fluticasone Fluticasone Yes 50 As Needed [facility] Folic Acid Folic Acid Yes Daily I [facility] Iron Iron Yes 25 Twice A Day [facility] Losartan Losartan Yes 50 Daily [facility] Meloxicam 15 Mg Tablet Meloxicam 15 Mg Tablet Yes 15 Daily [facility] Vit B6 Vit B6 Yes Daily [facility] Vitamin B-12 Vitamin B-12 Yes Daily [facility] Vitamin D Vitamin D Yes 2000 Daily [facility] Vitamin E Vitamin E Yes 1000 Daily [facility] Metoprolol Tartrate 50 Mg Tablet, 50 Mg Oral Metoprolo l Tartrate 50 Mg Tablet, 50 Mg Oral 2019-05-24 00:00:00 No 50 Daily [facility] Naproxen , 500 Mg Naproxen , 500 Mg 2019-05-24 00:00:00 No 500 As Needed [facility] Procedures Procedure Date / Time Performed Performing Clinician Sourc e Exploratory laparotomy 2019-06-06 00:00:00 MAURILIO WHITMAN I [facility] ERCP (endoscopic retrograde cholangiopancreatography) 15 00:00:00 REJI MARK [facility] US Gallbladder 2019-06-04 00:00:00 LAURA MATHEWS [facility] Computed tomography of abdomen and pelvis with contrast 2019 00:00:00 REJI MARK [facility] Magnetic resonance cholangiopancreatography (MRCP) wit hout then with contrast 2019-05-29 00:00:00 REJI MARK [facility] EGD BIOPSY SINGLE/MULTIPLE 2019-05-27 00:00:00 REJI MARK [facility] XR LUMBAR SPINE 2 OR 3 VW 2019-05-24 14:02:56 Joey Astudillo Plan of Care Planned Activity Planned Date Details Comments Source Future Scheduled Test 2019-12-21 00:00:00 INFLUENZA VACCINE [code = INFLUENZA VACCINE] Christos Young Future Scheduled Test 2007-02-08 00:00:00 SHINGLES VACCINES (#2) [code = SHINGLES VACCINES (#2)] Christos Young Encounters Start Date/Time End Date/Time Encounter Type Admission Type [facility] Care Department Encounter ID Source 2019-06-04 19:24:00 2019-06-12 12:34:00 Discharged Inpatient 1 TEJAL MARKIL [facility] [id number] [facility] 2019-05-31 08:34:00 2019-05-31 08:34:00 Registered Clinic 3 REJI MARK [facility] [id number] [facility] 2019-05-29 11:01:00 2019-05-29 11:01:00 Registered Clinic 3 REJI MARK [facility] [id number] [facility] 2019-05-27 09:59:00 2019-05-27 09:59:00 Registered Surgical Day Care [facility] [id number] [facility] Results Test Description Test Time Test Comments Results Result Comments Source Sodium Level 2019-06-11 05:53:00 Test Item Sodium Level (test code = 2951-2) 135 136-145 L [facility] Nigxd3953-94-32 05:53:00* Test Item Value Reference Range Interpretation Comments Potassium Level (test code = 2823-3) 3.4 3.5-5.1 L [facility] SystemChloride Pcara7905-48-45 05:53:00* Test Item Value Reference Range Interpretation Comments Chloride Level (test code = 2075-0) 102 98-107 [facility] SystemCarbon Dioxide Lglmw2672-22-39 05:53:00* Test Item Value Reference Range Interpretation Comments Carbon Dioxide Level (test code = 2028-9) 24 22-29 [facility] SystemAnion Wlc7628-21-01 05:53:00* Test Item Value Reference Range Interpretation Comments Anion Gap (test code = 01593-5) 12.4 8-16 [facility] Urea Jrdiddlu2653-19-32 05:53:00* Test Item Value Reference Range Interpretation Comments Blood Urea Nitrogen (test code = 3094-0) 5 7-26 L [facility] SystemCreatinine2020-01-21 05:53:00* Test Item Value Reference Range Interpretation Comments Creatinine (test code = 2160-0) 0.74 0.72-1.25 [facility] SystemBUN/Creatinine Yhdsb1432-51-11 05:53:00* Test Item Value Reference Range Interpretation Comments BUN/Creatinine Ratio (test code = 3097-3) 7 6-25 [facility] SystemEstimat Glomerular Filtration Rate 2019-06-11 05:53:00* Test Item Value Reference Range Interpretation Comments Estimat Glomerular Filtration Rate (test code = 508060315) > 60 >60 Ranges were taken from the National Kidney Disease Education Program and the [facility] Kidney Foundation literature.Reference ranges:60 or greater: Qwhjhn49-91 ( for 3 consecutive months): Chronic kidney disease 15 or less: Kidney failureDeTar Healthcare SystemGlucose Yetjq6877-67-96 05:53:00* Test Item Value Reference Range Interpretation Comments Glucose Level (test code = XWU7548) 101 74-118 [facility] SystemCalcium Jcbxh1025-03-34 05:53:00* Test Item Value Reference Range Interpretation Comments Calcium Level (test code = 41138-6) 8.2 8.4-10.2 L [facility] SystemWhite Blood Fbydz9747-31-82 05:39:00* Test Item Value Reference Range Interpretation Comments White Blood Count (test code = 6690-2) 4.53 4.8-10.8 L [facility] SystemRed Blood Hdrfv6790-95-02 05:39:00* Test Item Value Reference Range Interpretation Comments Red Blood Count (test code = 789-8) 2.69 4.3-5.7 L [facility] SystemHemoglobin2020-01-21 05:39:00* Test Item Value Reference Range Interpretation Comments Hemoglobin (test code = 70100-2) 9.1 14.0-18.0 L [facility] SystemHematocrit2020-01-21 05:39:00* Test Item Value Reference Range Interpretation Comments Hematocrit (test code = 4544-3) 26.2 38.2-49.6 L [facility] SystemMean Corpuscular Lxvycf8993-45-31 05:39:00* Test Item Value Reference Range Interpretation Comments Mean Corpuscular Volume (test code = 787-2) 97.4 81-99 [facility] SystemMean Corpuscular Pdcalffdkx9871-10-47 05:39:00* Test Item Value Reference Range Interpretation Comments Mean Corpuscular Hemoglobin (test code = 785-6) 33.8 28-32 H [facility] SystemMean Corpuscular Hemoglobin Concent 2019-06-11 05:39:00* Test Item Value Reference Range Interpretation Comments Mean Corpuscular Hemoglobin Concent (test code = 786-4) 34.7 31-35 [facility] SystemRed Cell Distribution Yqgud7528-75-45 05:39:00* Test Item Value Reference Range Interpretation Comments Red Cell Distribution Width (test code = 52352-3) 12.3 11.7 -14.4 [facility] SystemPlatelet Kokjz6893-36-89 05:39:00* Test Item Value Reference Range Interpretation Comments Platelet Count (test code = 777-3) 227 140-360 [facility] SystemNeutrophils (%) (Auto)2019-06-11 05:39:00 * Test Item Value Reference Range Interpretation Comments Neutrophils (%) (Auto) (test code = 94843-1) 61.5 38.7-80.0 [facility] SystemLymphocytes (%) (Auto)2019-06-11 05:39:00 * Test Item Value Reference Range Interpretation Comments Lymphocytes (%) (Auto) (test code = 736-9) 24.3 18.0-39.1 [facility] SystemMonocytes (%) (Auto)2019-06-11 05:39:00* Test Item Value Reference Range Interpretation Comments Monocytes (%) (Auto) (test code = 5905-5) 8.2 4.4-11.3 [facility] SystemEosinophils (%) (Auto)2019-06-11 05:39:00 * Test Item Value Reference Range Interpretation Comments Eosinophils (%) (Auto) (test code = 713-8) 4.9 0.0-6.0 [facility] System[facility]ophils (%) (Auto)2019-06-11 05:39:00* Test Item Value Reference Range Interpretation Comments Basophils (%) (Auto) (test code = 706-2) 0.4 0.0-1.0 [facility] SystemIM GRANULOCYTES %2019-06-11 05:39:00* Test Item Value Reference Range Interpretation Comments IM GRANULOCYTES % (test code = IM GRANULOCYTES %) 0.7 0.0- 1.0 [facility] SystemNeutrophils # (Auto)2019-06-11 05:39:00* Test Item Value Reference Range Interpretation Comments Neutrophils # (Auto) (test code = 751-8) 2.8 2.1-6.9 [facility] SystemLymphocytes # (Auto)2019-06-11 05:39:00* Test Item Value Reference Range Interpretation Comments Lymphocytes # (Auto) (test code = 95030-7) 1.1 1.0-3.2 [facility] SystemMonocytes # (Auto)2019-06-11 05:39:00* Test Item Value Reference Range Interpretation Comments Monocytes # (Auto) (test code = 742-7) 0.4 0.2-0.8 [facility] SystemEosinophils # (Auto)2019-06-11 05:39:00* Test Item Value Reference Range Interpretation Comments Eosinophils # (Auto) (test code = 711-2) 0.2 0.0-0.4 [facility] SystemBasophils # (Auto)2019-06-11 05:39:00* Test Item Value Reference Range Interpretation Comments Basophils # (Auto) (test code = 704-7) 0.0 0.0-0.1 [facility] SystemAbsolute Immature Granulocyte (auto 2019-06-11 05:39:00* Test Item Value Reference Range Interpretation Comments Absolute Immature Granulocyte (auto (shruti t code = Absolute Immature Granulocyte (auto) 0.03 0-0.1 [facility] SystemBlood Vrjxpbp8489-53-94 22:15:00* Test Item Value Reference Range Interpretation Comments Blood Culture (test code = 25020057) NO GROWTH AFTER 5 DAYS, FINAL REPORT [facility] SystemTotal Gxdkzhwza6800-15-86 06:46:00* Test Item Value Reference Range Interpretation Comments Total Bilirubin (test code = 1975-2) 1.6 0.2-1.2 H [facility] SystemAspartate Amino Transf (AST/SGOT) 2019-06-09 06:46:00* Test Item Value Reference Range Interpretation Comments Aspartate Amino Transf (AST/SGOT) (test code = Aspartate Amino Transf (AST/SGOT)) 25 5-34 [facility] SystemAlanine Aminotransferase (ALT/SGPT) 2019-06-09 06:46:00* Test Item Value Reference Range Interpretation Comments Alanine Aminotransferase (ALT/SGPT) (test code = 1742-6) 56 0-55 H [facility] SystemTotal Gyrdmir2166-40-12 06:46:00* Test Item Value Reference Range Interpretation Comments Total Protein (test code = 2885-2) 4.7 6.5-8.1 L [facility] SystemAlbumin2020-01-19 06:46:00* Test Item Value Reference Range Interpretation Comments Albumin (test code = 1751-7) 2.2 3.5-5.0 L [facility] SystemGlobulin2020-01-19 06:46:00* Test Item Value Reference Range Interpretation Comments Globulin (test code = 18728-6) 2.5 2.3-3.5 [facility] SystemAlbumin/Globulin Cixha8815-42-51 06:46:00 * Test Item Value Reference Range Interpretation Comments Albumin/Globulin Ratio (test code = 1759-0) 0.9 0.8-2.0 [facility] SystemAlkaline Jbkjdbaiwjl8470-41-07 06:46:00* Test Item Value Reference Range Interpretation Comments Alkaline Phosphatase (test code = 6768-6) 94 40-150 [facility] SystemAmylase Lfnur4624-23-01 07:40:00* Test Item Value Reference Range Interpretation Comments Amylase Level (test code = 1798-8) 115 25-125 [facility] SystemCHOLANGIOGRAM LCRGBM0533-38-11 14:13:00 [facility] [address] [place] [address] Patient Name: BRONSON WHITMAN MR #: [id number] : 1940 Age/Sex: 78/M Req #: [id number] Adm Physician: MAULIK MARK MD Ordered by: MAURILIO WHITMAN MD Report #: [id number] Location: MED/SURG Room/Bed: [facility] Procedure: [id number] DX/CHOLANGIOGRAM INTROP Exam Date: 06/06/19 Exa m Time: 1140 REPORT STATUS: Signed Intraoperative cholangiogram. CLINICAL HISTORY: [id number] C-ARM ASSIST INTRAOPERATIVE CHOLANGIOGRAM/CBDE. FINDINGS: 7 fluoroscopicall y acquired images were acquired by the referring physician. Images demonstrate opacification of the common hepatic and common bile ducts via a catheter with in the cystic duct. Initial images demonstrate a round filling defect within t he CBD. In subsequent images the filling defect is no longer seen and contrast is seen passing into the adjacent duodenum. Fluoroscopy was not performed by the undersigned. Fluoroscopy time: 50 seconds. 7 images. Signed by: Steve Dodson on 06/06/2019 2:17 PM Dictated By: NATALIE wright Signed By: NATALIE DODSON MD on 06/06/191416 Transcribed By: LOS on 0 06/06/191416 COPY TO: MAURILIO WHITMAN MD Differential Total Cells Gznzotc1669-20-93 08:38:00* Test Item Value Reference Range Interpretation Comments Differential Total Cells Counted (test code = Sandra tial Total Cells Counted) 100 [facility] SystemNeutrophils % (Manual)2019-06-05 08:38:00 * Test Item Value Reference Range Interpretation Comments Neutrophils % (Manual) (test code = 95777-3) 89 40-74 H [facility] SystemLymphocytes % (Manual)2019-06-05 08:38:00 * Test Item Value Reference Range Interpretation Comments Lymphocytes % (Manual) (test code = 737-7) 6 19-48 L [facility] SystemMonocytes % (Manual)2019-06-05 08:38:00* Test Item Value Reference Range Interpretation Comments Monocytes % (Manual) (test code = 744-3) 4 3.4-9.0 [facility] SystemEosinophils % (Manual)2019-06-05 08:38:00 * Test Item Value Reference Range Interpretation Comments Eosinophils % (Manual) (test code = 714-6) 1 0-7 [facility] SystemPlatelet Dwujrijx6327-18-02 08:38:00* Test Item Value Reference Range Interpretation Comments Platelet Estimate (test code = 93345-5) ADEQUATE [facility] SystemPlatelet Morphology Dpxyycx2381-39-80 08:38:00* Test Item Value Reference Range Interpretation Comments Platelet Morphology Comment (test code = 21213-5) NORMAL [facility] SystemRed Cell Morphology Kkzeahu2635-95-96 08:38:00* Test Item Value Reference Range Interpretation Comments Red Cell Morphology Comment (test code = 6742-1) NORMAL [facility] SystemDirect Twnuggmhy9331-49-60 07:21:00* Test Item Value Reference Range Interpretation Comments Direct Bilirubin (test code = 62672-0) 2.3 0.0-0.5 H [facility] SystemCHEST SINGLE (PORTABLE)2019-06-05 06:35:00 [facility] [address] [address] Patient Name: BRONSON WHITMAN MR #: [id number] : 1940 Age/Sex: 78/M Req #: [id number] Adm Physician: HALLIE MATSON NP Ordered by: HALLIE MATSON CUPROUS CHLORIDE HELPER Report #: [id number] Location: [facility] Room/Bed: [place] [address] Procedure: [id number] DX/CHEST SINGLE (PORTABLE) Exam Date: Exam Time: REPORT STATUS: Signed Examinati on: Single AP view of the chest. COMPARISON: None. INDICATION: Shortne ss of breath, stomach pain IMPRESSION: 1. Lines and Tubes: None 2. Lungs are grossly clear. No consolidation or effusion. 3. Cardiomedias tinal silhouette is normal. Pulmonary vasculature is normal. Tortuous thorac ic aorta. 4. No acute bony abnormalities. [place] screw is noted in the left h umeral head. Signed by: Dr. Solomon Buenrostro M.D. on 06/05/2019 6:36 AM Dictated By: SOLOMON BUENROSTRO MD 0636 Transcribed By: LOS on 06/05/19635 COPY TO: HALLIE MELTON CUPROUS CHLORIDE HELPER Prothrombin Wsru0483-67-52 05:54:00* Test Item Value Reference Range Interpretation Comments Prothrombin Time (test code = 5902-2) 13.3 11.9-14.5 [facility] SystemProthromb Time International Ratio 2019-06-05 05:54:00* Test Item Value Reference Range Interpretation Comments Prothromb Time International Ratio (test code = 6301-6) 0.96 Oral Anticoagulant Therapy INR Values:1. Low Intensity Therapy 1.5 - 2.02 . Moderate Intensity Therapy 2.0 - 3.03. High Intensity Therapy(1) 2.5 - 3. 54. High Intensity Therapy(2) 3.0 - 4.05. Panic Value INR > 5.0 [facility] SystemActivated Partial Thromboplast Time 2019-06-05 05:54:00* Test Item Value Reference Range Interpretation Comments Activated Partial Thromboplast Time (test code = 45509-9) 33.2 23.8-35.5 [facility] SystemLactic Acid Fdoak3794-85-53 22:38:00* Test Item Value Reference Range Interpretation Comments Lactic Acid Level (test code = Lactic Acid Level) 0.8 0.5- 2.0 [facility] SystemBand Neutrophils %2019-06-04 19:26:00* Test Item Value Reference Range Interpretation Comments Band Neutrophils % (test code = 764-1) 11 [facility] SystemUS EOZVZJAZRZY6294-95-05 18:08:00 [facility] [address] [place] [address] Patient Name: BRONSNO WHITMAN MR #: [id number] : 1940 Age/Sex: 78/M Req #: [id number] Adm Physician: Ordered by: LAURA MATHEWS DO Report #: [id number] Location: ER Room/Bed: Procedure: [id number] 4 US/US GALLBLADDER Exam Date: 06/04/19 Exam Time: 1 732 REPORT STATUS: Signed EXAM: Gallbladder Ultrasound INDICATION: Abdominal pain. Check for gallstone in ga llbladder neck. check for SIN COMPARISON: CT scan May 31, 2019. MRI a nd/or 2019. TECHNIQUE: Transverse and longitudinal images of the gallbladde r were obtained. FINDINGS: Liver: Normal in size and appearance measuring 13.8 cm Gallbladder: Stones/Sludge: Multiple stones are seen in the neck of the gallbladder. Sludge is also seen in the lumen of the gallbla dder. Mild amount of pericholecystic fluid. Wall: 0.4 cm. Dilated Appearan ce: No hydrops. Sonographic Wu's Sign: Negative Bile Ducts: Intra hepatic Ducts: No dilatation Extrahepatic Ducts: Common bile duct measures 0.8 cm, dilated Free Fluid: No ascites or pleural effusion Right kidney normal in appearance measuring 10.8 cm. Pancreas and abdominal aorta not w ell seen. IMPRESSION: Multiple gallstones in the neck of the gallbladder with gallbladder sludge, pericholecystic fluid and dilated common bile duct. N o definite stone is seen in the common bile duct. Signed by: Dr. Chris bhat M.D. on 06/04/2019 6:11 PM Dictated By: CHRIS GUTIERREZ MD, MD Electron ically Signed By: CHRIS GUTIERREZ MD, MD on 06/04/191810 Transcribed By: LOS on 06/04/191810 COPY TO: LAURA MATHEWS, Urine WBC 2019-06-04 17:04:00* Test Item Value Reference Range Interpretation Comments Urine WBC (test code = 5821-4) NONE 0-5 [facility] System[facility] [id number] 17:04:00* Test Item Value Reference Range Interpretation Comments Urine RBC (test code = 42873-9) NONE 0-5 [facility] System[facility] Zpibbdkz3222-83-82 17:04:00* Test Item Value Reference Range Interpretation Comments Urine Bacteria (test code = 19597-2) RARE NONE [facility] System[facility] Epithelial Iqrla3212-85-23 17:04:00 * Test Item Value Reference Range Interpretation Comments Urine Epithelial Cells (test code = 67618-1) NONE NONE [facility] System[facility] Njqdc1255-47-56 16:55:00* Test Item Value Reference Range Interpretation Comments Urine Color (test code = 5778-6) YELLOW YELLOW [facility] System[facility] Liwafce9361-63-95 16:55:00* Test Item Value Reference Range Interpretation Comments Urine Clarity (test code = 83966-2) SL CLOUDY CLEAR H [facility] Specific Ufnogre5050-89-86 16:55:00 * Test Item Value Reference Range Interpretation Comments Urine Specific [place] (test code = 5811-5) 1.015 1.010-1.02 5 [facility] SystemU[facility] cS8912-39-18 16:55:00* Test Item Value Reference Range Interpretation Comments Urine pH (test code = 97491-4) 7 5-7 [facility] [id number] 16:55:00* Test Item Value Reference Range Interpretation Comments Urine Leukocyte Esterase (test code = 5799-2) NEGATIVE NEGATIVE [facility] [id number] 16:55:00* Test Item Value Reference Range Interpretation Comments Urine Nitrite (test code = 58160-8) NEGATIVE NEGATIVE [facility] [id number] 16:55:00* Test Item Value Reference Range Interpretation Comments Urine Protein (test code = 5804-0) NEGATIVE NEGATIVE [facility] Glucose (UA)2019-06-04 16:55:00* Test Item Value Reference Range Interpretation Comments Urine Glucose (UA) (test code = 2349-9) NEGATIVE NEGATIVE [facility] [id number] 16:55:00* Test Item Value Reference Range Interpretation Comments Urine Ketones (test code = 41571-2) NEGATIVE NEGATIVE [facility] [id number] 16:55:00* Test Item Value Reference Range Interpretation Comments Urine Urobilinogen (test code = 68059-6) 1 0.2-1 [facility] [id number] 16:55:00* Test Item Value Reference Range Interpretation Comments Urine Bilirubin (test code = 1978-6) NEGATIVE NEGATIVE [facility] [id number] 16:55:00* Test Item Value Reference Range Interpretation Comments Urine Blood (test code = 35706-4) TRACE NEGATIVE H [facility] [id number] 10:33:00 [facility] [address] [address] Patient Name: BRONSON WHITMAN MR #: [id number] : 1940 Age/Sex: 78/M Req #: [id number] Adm Physician: Ordered by: REJI MARK MD Report #: [id number] Location: CT Room/Bed: Procedure: [id number] CT/CT ABDOMEN/PELVIS W Exam Date: 05/31/19 Exam Time : 1005 REPORT STATUS: Signed EXA M: CT Abdomen and Pelvis WITH intravenous contrast INDICATION: Abdominal pain COMPARISON: MRCP 05/29/2019 TECHNIQUE: Abdomen and pelvis were scan carrie utilizing a multidetector helical scanner from the lung base to the pubic symphysis after administration of IV contrast. Coronal and sagittal reformatio ns were obtained. Routine protocol was performed. Scan was performed during po rtal venous phase. IV CONTRAST: 100mL of Isovue 370 ORAL CONTRAST: W ater RADIATION DOSE: Total DLP: 333.9 mGy*cm Dose modulation, itera tive reconstruction, and/or weight based adjustment of the mA/kV was utilized to reduce the radiation dose to as low as reasonably achievable. FINDING S: LOWER THORAX: Normal. HEPATOBILIARY: Mild diffuse hepatic steatosis. N o focal liver lesion. No biliary ductal dilation. Cholelithiasis without CT ev idence of cholecystitis. SPLEEN: No splenomegaly. PANCREAS: No focal m asses or ductal dilatation. ADRENALS: No adrenal nodules. KIDNEYS/URETERS : No hydronephrosis, stones, or solid mass lesions. Subcentimeter bilateral re nal cysts. PELVIC ORGANS/BLADDER: Unremarkable. PERITONEUM / RETROPERITON EUM: No free air or fluid. LYMPH NODES: No lymphadenopathy. VESSELS: Diffuse atherosclerotic calcifications of the nonaneurysmal abdominal aorta and major branches. GI TRACT: Diverticulosis without CT evidence of diverticulitis. This includes right-sided diverticulosis. No abnormal bowel thickening. No bow el obstruction. BONES AND SOFT TISSUES: No acute osseous injury. Status pos t posterior decompression and fusion involving L3-L5. Old healed left pelvic f ractures. Degenerative changes of the visualized spine. IMPRESSION: No acute findings in the abdomen or pelvis. Cholelithiasis without CT evidence of cholecystitis. Mild diffuse hepatic steatosis. Diverticulosis wit hout CT evidence of diverticulitis, including right-sided diverticulosis. Signed by: Kyle Dow MD on 05/31/2019 10:39 AM Dictated By: KYLE DOW MD 103 Transcribed By: SASHA MÉNDEZ on 05/31/19 1039 COPY TO: REJI MARK MD MRI MRCP [facility] 2019-05-29 15:46:[address] [address] Patient Name: BRONSON WHITMAN MR #: [id number] : 1940 Age/Sex: 78/M Req #: [id number] Adm Physician: Ordered by: REJI MARK MD Report #: [id number] Location: MRI Room/Bed: Procedure: [id number] MRI/MRI MRCP [facility] Exam Date: Exam Time: REPORT STATUS: Signed EXAM: MRI of the abdo men with and without contrast. INDICATION: Abdominal pain. COMPARISON: None. TECHNIQUE: Multiplanar and multisequence imaging was performed of the abdomen before and after administration of intravenous contrast. MRCP seri es included. IV Contrast: 13 cc of MultiHance Oral Contrast: None. M edications: None DISCUSSION: Limited study due to motion artifact. L OWER THORAX: Unremarkable. HEPATOBILIARY: Heterogeneous liver parenchyma. No definite focal mass. No intrahepatic biliary dilatation. Common bile left is distended up to 9 mm. There is a 6 mm filling defect within mid common bile duct (series 8, image 22). GALLBLADDER: Gallbladder is distended. There are multiple dependent small gallstones within gallbladder. No wall thicken ing. SPLEEN: No splenomegaly. PANCREAS: No focal masses or ductal dil atation. ADRENALS: No adrenal nodules KIDNEYS/URETERS: Kidneys e nhance symmetrically. No hydronephrosis. No renal mass. Subcentimeter left re nal mid to inferior pole cyst. Nonspecific mild bilateral perinephric edema. GI TRACT: Visualized bowel loops are unremarkable. No evidence of bowel o bstruction. LYMPH NODES: No lymphadenopathy. VESSELS: Tortuous abdomin al aorta. No aneurysmal dilatation. PERITONEUM / RETROPERITONEUM: No free a ir or fluid. BONES: Lower lumbar spine fixation hardware. SOFT TISSUES : Unremarkable. 2.6 x 2.6 cm T2 hyperintense cystic structure to the left of t he L5-S1 (series 8, image 7). IMPRESSION: Cholelithiasis withou t evidence of cholecystitis. Choledocholithiasis with mild dilatation of commo n bile duct. Signed by: Dr. Santana Mansfield MD on 05/29/2019 3:57 PM Dictated By: SANTANA MANSFIELD MD [id number] COPY TO: TONIO MARK MD
--- OUTSIDE RECORDS SUMMARY | 2020-04-12 18:30 | XMS REPORT | Clinical Summary ---
Author Author [facility] Address Unknown Phone Unavailable Care Team Providers Care Ethylbenzene Converter Helper Name Role Phone Marcell Pettit DO PCP Allergies No Known Active Allergies Medications End Date Status Medication Sig Dispensed Refills Start Date Active metoprolol succinate XL 0 (TOPROL-XL) 50 MG 24 hr 6 tablet Active tamsulosin (FLOMAX) 0.4 0 mg capsule,extended 6 release 24hr Active nitrofurantoin Take 100 mg 0 (MACRODANTIN) 100 MG by mouth capsule daily. Active polyethylene glycol Use daily per 0 (MIRALAX) 17 gram packet package 6 instructions for constipation. Is over the counter Active VIAGRA 50 mg tablet 0 7 Active fluticasone (FLONASE) 50 0 mcg/actuation nasal spray 7 Active vitamin E 1000 UNIT Take 1,000 0 capsule Units by mouth daily. Active cyanocobalamin 100 MCG Take 100 mcg 0 tablet by mouth daily. Active cholecalciferol, vitamin Take 400 0 D3, (VITAMIN D3) 400 unit Units by tablet mouth daily. Active gabapentin (NEURONTIN) Take 1 270 capsule 3 300 mg capsule (300 9 capsuleIndications: mg total) by Neuropathic pain, Lumbar mouth 3 stenosis with neurogenic (three) times claudication, Peripheral a day. 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 right hand 09/19/2017 Arthritis of left hand 09/19/2017 Dupuytren's contracture of right hand 09/11/2017 Trigger finger, right index finger 09/11/2017 Mass of left hand 09/11/2017 Complete tear of left rotator cuff 03/03/2017 Post-operative state 03/03/2017 Primary osteoarthritis of right knee 12/07/2016 Right medial knee pain 12/07/2016 Rotator cuff tear arthropathy 10/18/2016 Internal derangement of left shoulder 10/10/2016 Trochanteric bursitis of left hip 05/06/2016 Left-sided low back pain with left-sided sciatica Bursitis/tendonitis, shoulder 04/29/2016 Adhesive capsulitis of both shoulders 04/29/2016 Lumbar stenosis with neurogenic claudication 016 Lumbar stenosis 02/10/2016 Synovial cyst 02/10/2016 Encounters Care Team Description Date Type Specialty Joey Astudillo MD Chronic bilateral low back pain without sciatica (Primary Dx) 05/24/2019 Office Visit Orthopedic Surgery after 04/12/2019 Surgical History Surgery Date Site/Laterality Comments ORTHOPEDIC SURGERY LUMBAR SPINE SURGERY SHOULDER OPEN ROTATOR Bilateral CUFF REPAIR TIBIA FRACTURE SURGERY Left with plate and screws CERVICAL LAMINECTOMY 2014 FUSION, SPINE, LUMBAR, 03/09/2016 Spine Procedu re: EXCISION OF SYNOVIAL CYST L5-S1 WITH A INTERBODY, TRANSFORAMINAL Lumbar/N/A REDO DECOMP RESSIVE LUMBAR LAMINECTOMY AND APPROACH DISCECTOMY L4-L5 L5-S1 WITH LATERAL TRANSVERSE FUSION WITH PEDICAL SCREW FIXATION L4-L 5 POSSIBLE L5-S1 INTERBODY FUSION WITH CAGES POSSI BLEW L5-S1 ; Surgeon: Joey Astudillo MD; Loca tion: [facility] OR; Service: Orthopedics; Late rality: N/A; Medical devices from this surgery are i n the Implants section. ARTHROSCOPY, SHOULDER 02/16/2017 Shoulder/Left Procedur e: RIGHT SHOULDER ARTHROSCOPY WITH AC JOINT RESECTION AND SUBACROMIAL DECOMPR ESSION, oPEN ROTATOR CUFF REPAIR CUFF ; Surge on: Flavio Irizarry MD; Location: [facility] OR; Service: Orthopedics; Laterality: Left ; Medical devices from this surgery are i n the Implants section. LAMINECTOMY, LUMBAR 11/28/2018 Spine Procedure: Redo Decompressive Lumbar Laminectomy Lumbar/Posterio and Discectomy Level L3-4 and lateral transverse r fusion with pedicle screw f ixation Level L3-4 and interbody fusion with cages Level L3-4; Surgeon: Joey Astudillo MD; Location: [facility] OR; Service: Orthopedics; Laterality: Post erior; Medical devices from this surgery are i n the Implants section. 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 Lumbar stenosis with neurogenic 03/09/2016 claudication TIA (transient ischemic attack) 30 yrs ago Family History Medical History Relation Name Comments Heart attack Brother Ja Whitman Heart attack Brother Salvador Whitman Heart attack Brother Chris Whitman Diabetes Mother Toña Whitman Heart disease Mother Toña Whitman Hypertension Mother Toña Whitman Cancer Son Wood Whitman Relation Name Status Comments Brother Ja Whitman Brother Salvador Whitman Brother Chris Whitman Father Mother Toña Whitman Social History Date Tobacco Use Types Packs/Day Years Used Quit: 06/20/1998 Former Smoker Cigarettes 1.5 0 Smokeless Tobacco: Never Used Comments: quit 30 yrs ago Drinks/Week oz/Week Comments Alcohol Use 6 Cans of beer 6.0 1-2 beers/day Yes Sex Assigned at Date Recorded Not on file Last Filed Vital Signs Not on file Plan of Treatment Health Maintenance Due Date Last Done Comments SHINGLES VACCINES (#2) 02/08/2007 12/08/2006 INFLUENZA VACCINE 12/21/2019 02/02/2012, 02/24/2011, 03/05/2010 65+ PNEUMOCOCCAL VACCINE Completed 12/08/2006 Implants Device Identifier Shelf Expiration Date Model / Serial / L ot Implanted Type Area Manufactur er 08/20/2017 [id number] / [id number] / [id number] Kit Bone Grft Lmbr Tprd 2.8ml Sm Human N/A: Spine MEDTR[employer]IC Infuse - [id number] - [id number] Tissue Lumbar SPINAL AND Implanted: Qty: 1 on 03/09/2016 by Implants BIO Joey Ward MD at [facility] 10/30/2017 [id number] / [id number] / [id number] Drafton Dbm Orthoblend Small Defect Human Bilateral: MED[employer] 5cc - [id number] - [id number] Tissue Spine Lumbar SPINAL AND Implanted: Qty: 1 on 03/09/2016 by Implants Joye Mchugh MD at [facility] 08/20/2019 [id number] / / [id number] Kit Bone Graft Lumbar Tapered 2.8mm Human Posterior: [employer] Small Infuse - [id number] Tissue Spine Lumbar SPIN AL AND Implanted: Qty: 1 on 11/28/2018 by Implants Joey Mchugh MD at [facility] 06/22/2026 [id number] / / [id number] Capstone Ptc 62w10xa - [id number] IPM Posterior: [employer] Implanted: Qty: 1 on 03/09/2016 by IMPLANT Spine Lumba r TONGAMOR Joey Astudillo MD at [facility] [id number] / / José Miguel [id number] 35mm Perc José Miguel 4.75mm IPM Posterior: [employer] Ccm - [id number] IMPLANT Spine Lumbar SOFAMOR Implanted: Qty: 1 on 03/09/2016 by DEVICES Joey Dye MD at [facility] [id number] / / José Miguel [id number] 35mm Perc José Miguel 4.75mm IPM Posterior: [employer] Ccm - [id number] IMPLANT Spine Lumbar SOFAMOR Implanted: Qty: 1 on 03/09/2016 by DEVICES Joey Dye MD at [facility] 08/13/2018 48 [id number] / n/a / [id number] Dermaspan Acd 5x5cm; 1.15mm - Sn/A IPM N/A: N/A BIOMET, - [id number] IMPLANT INC Implanted: Qty: 1 on 02/16/2017 by DEVICES Flavio Irizarry MD at [facility] 06/21/2021 CM [id number] / n/a / [id number] Quattro Link Knotless Peek [place] IPM N/A: N/A BIOMET 4.5mm - Sn/A - [id number] IMPLANT SPORTS Implanted: Qty: 2 on 02/16/2017 by DEVICES MED Flavio Titus MD at [facility] 07/03/2026 [id number] / / [id number] Elevate Expandable Tlif 9x28 IPM Posterior: [employer] Mm - [id number] IMPLANT Spine Lumbar SOFAMOR Implanted: 11/28/2018 at [facility] (Quantity not on file) [id number] / / José Miguel [id number] 60mm Capped José Miguel IPM Posterior: [employer]IC 4.75mm Ccm - [id number] IMPLANT Spine Lumbar SOFAMO R Implanted: 11/28/2018 at [facility] (Quantity not on file) [id number] / / José Miguel [id number] 60mm Perc José Miguel 4.75mm IPM Posterior: [employer]TR[employer]IC Ccm - [id number] IMPLANT Spine Lumbar SOFAMOR Implanted: 11/28/2018 at [facility] (Quantity not on file) 12/06/2020 [id number] / / [id number] Juggerknot 2.9 - [id number] Orthopedic N/A: N/A BIO MET Implanted: Qty: 3 on 02/16/2017 by Trauma SPO Flavio Duarte MD at [facility] Implants MEDI CINE 07/06/2020 [id number] / [id number] / LOT NA Putty Dbm Dbx 1cc - Orthopedic Posterior: MUSCULOSKE [id number] - [id number] Trauma Spine Lumbar LETAL Implanted: Qty: 1 on 11/28/2018 by Implants Joey Lemos MD at [facility] 07/06/2020 [id number] / [id number] / LOT NA Putty Dbm Dbx 1cc - Orthopedic Posterior: MUSCULOSKE [id number] - [id number] Trauma Spine Lumbar LETAL Implanted: Qty: 1 on 11/28/2018 by Implants Joey Lemos MD at [facility] [id number] / / Screw Spinal Canltd Mul-Ax Co-Cr Ti Spinal Posterior: [employer]IC 4.75x6.5x40mm - [id number] Implants Spine Lumbar SPIN AL AND Implanted: Qty: 1 on 03/09/2016 by Joey Prasad MD at [facility] [id number] / / Screw Spinal Set Brkof Ti 4.75mm Ns Spinal Posterior: MED[employer]IC - [id number] Implants Spine Lumbar SPINAL AND Implanted: Qty: 1 on 03/09/2016 by Joey Prasad MD at [facility] [id number] / / Screw Spinal Canltd Mul-Ax Co-Cr Ti Spinal Posterior: MEDTRONIC 4.75x6.5x40mm - [id number] Implants Spine Lumbar SPIN AL AND Implanted: Qty: 3 on 03/09/2016 by Joey Prasad MD at [facility] [id number] / / Screw Spinal Set Brkof Ti 4.75mm Ns Spinal Posterior: MEDTRONIC - [id number] Implants Spine Lumbar SPINAL AND Implanted: Qty: 3 on 03/09/2016 by Joey Prasad MD at [facility] [id number] / / Screw Spinal Set Brkof Ti 4.75mm Ns Spinal Posterior: MEDTRONIC - [id number] Implants Spine Lumbar SPINAL AND Implanted: 11/28/2018 at [facility] (Quantity not on file) [id number] / / Screw Bone Mul-Ax 6.5x45mm - Spinal Posterior: M EDTRONIC [id number] Implants Spine Lumbar SPINAL AND Implanted: 11/28/2018 at [facility] (Quantity not on file) [id number] / / Matrix Hmstc Floseal 5ml W/ Humn F2 Surgical N/A: N/A LOU - [id number] Implants; BIOSCIENCE Implanted: Qty: 1 on 03/09/2016 by Expanders; Joey Astudillo MD at [facility] Surgical Wires [id number] / / Matrix Hmstc Floseal 5ml W/ Humn F2 Surgical N/A: N/A LOU - [id number] Implants; BIOSCIENCE Implanted: Qty: 1 on 03/09/2016 by Expanders; Joey Astudillo MD at [facility] Surgical Wires 11/18/2021 [id number] / / [id number] Kit Instru Soft [place] 2.9mm Surgical N/A: N/A B IOMET Juggerknot - [id number] Implants; SPORTS Implanted: Qty: 1 on 02/16/2017 by Expanders; MED Flavio Titus MD at [facility] Extenders; Surgical Wires 06/21/2019 [id number] / / [id number] Quattro Suture Passer Needle Suture N/A: N/A C PALLAVI Implanted: Qty: 1 on 02/16/2017 by Implement Juan C VALVERDE Roy B., MD at [facility]. 06/21/2019 [id number] / / [id number] Quattro Suture Passer Needle Suture N/A: N/A C PALLAVI Implanted: Qty: 1 on 02/16/2017 by Implement Juan C VALVERDE Roy B., MD at [facility]. 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 Patient Retail Merchandising Coordinator Explanation Type Date Recorded Advance Directives, 11/28/2018 5:58 AM Living Will and Medical Power of Electromechanical Equipment Assembler
--- NOTE | 2020-04-12 18:43 | NUR ---
DR. MISHRA AT BEDSIDE SUTURING WOUND
[2020-04-12] MEDS: TETANUS/DIPHTHERIA TOX ADULT 0.5 ML SYR IM ONE (18:55)
--- NOTE | 2020-04-12 20:29 | Diagnostic Imaging Report ---
Exam: Head CT without contrast History: Trauma Comparison studies: None Technique: Axial images were obtained from the skull base to the vertex. Coronal and sagittal images reconstructed from the axial data. Dose modulation, iterative reconstruction, and/or weight based adjustment of the mA/kV was utilized to reduce the radiation dose to as low as reasonably achievable. Radiation dose: Total DLP: 921.4 mGy*cm. Estimated effective dose: DLP x 0.015 Intravenous contrast: None Findings: Scalp: An acute scalp hematoma and laceration centered in the left paramedian parieto-occipital scalp is with overlying surgical lisa in place. No retained hyperdense foreign body. Bones: No fractures, blastic or lytic lesions. Brain sulci: Moderately prominent. Ventricles: An acute 1.2 cm hyperdense hemorrhage is adherent to the ependymal surface of the body of the left lateral ventricle. Small-volume hyperdense hemorrhage also present in the frontal horn of the left lateral ventricle. There is moderate compensatory dilatation of the ventricles due to generalized volume loss. No hydrocephalus at this time. Extra-axial spaces: No masses, no fluid collection. Parenchyma: No mass or acute or chronic cortical insults. Ill-defined and confluent hypodensities in the supratentorial white matter are nonspecific but are most compatible with chronic microvascular ischemic changes. Sellar/suprasellar region: No abnormalities. Craniocervical junction: Patent foramen magnum. No Chiari one malformation. Incidental findings: Chronic inflammatory changes in the right mastoids. Atherosclerotic calcifications in the carotid siphons in the left intradural vertebral artery. IMPRESSION: 1. Left paramedian parieto-occipital scalp hematoma and laceration. No retained hyperdense foreign body or fracture. 2. Acute small volume intraventricular hemorrhage. No hydrocephalus. 3. Moderate generalized parenchymal volume loss. 4. Moderate chronic microvascular ischemic changes. Findings discussed with Dr. Stanley at 8:14 PM on 04/12/2020. Signed by: Dr. Marcell Mason M.D. on 04/12/2020 8:26 PM
[2020-04-12 20:56] LABS: BASOPHILS % 0.2 % (0.0-1.0); EOSINOPHILS # (AUTO) 0.1 (0.0-0.4); EOSINOPHILS % 0.6 % (0.0-6.0); HEMATOCRIT 36.8 % (38.2-49.6); HEMOGLOBIN 13.4 g/dL (14.0-18.0); LYMPHOCYTES # (AUTO) 1.2 (1.0-3.2); LYMPHOCYTES % 13.9 % (18.0-39.1); MEAN CORPUSCULAR HEMOGLOBIN 33.6 pg (28-32); MEAN CORPUSCULAR HGB CONC 36.4 g/dL (31-35); MEAN CORPUSCULAR VOLUME 92.2 fL (81-99); MONOCYTES # (AUTO) 0.5 (0.2-0.8); MONOCYTES % 5.9 % (4.4-11.3); NEUTROPHILS # (AUTO) 6.5 (2.1-6.9); PLATELET COUNT 241 x10e3/uL (140-360); RED BLOOD COUNT 3.99 x10e6/uL (4.3-5.7); RED CELL DISTRIBUTION WIDTH 11.6 % (11.7-14.4)
[2020-04-12 21:14] LABS: INR 0.95; PROTHROMBIN TIME 13.2 seconds (11.9-14.5)
[2020-04-12 21:16] LABS: ALANINE AMINOTRANSFERASE 17 IU/L (0-55); ALBUMIN 4.4 g/dL (3.5-5.0); ALBUMIN/GLOBULIN RATIO 1.6 (0.8-2.0); ALKALINE PHOSPHATASE 59 IU/L (40-150); ANION GAP 14.1 mmol/L (8-16); BLOOD UREA NITROGEN 10 mg/dL (7-26); BUN/CREATININE RATIO 12 (6-25); CALCIUM 8.6 mg/dL (8.4-10.2); CARBON DIOXIDE 21 mmol/L (22-29); CHLORIDE 93 mmol/L (98-107); CREATININE, SERUM 0.82 mg/dL (0.72-1.25); EST GLOMERULAR FILTRATION RATE > 60 ML/MIN (60-); GLUCOSE 92 mg/dL (74-118); POTASSIUM 4.1 mmol/L (3.5-5.1); SODIUM 124 mmol/L (136-145)
--- NOTE | 2020-04-12 21:35 | NUR ---
[facility] CALLED AT THIS TIME FOR REPORT. PT TRASFERRRING TO NEURO ICU, 7C [phone].
[2020-04-12] MEDS: SODIUM CHLORIDE 0.9% 1000ML 1,000 ML IV SCH (21:50)
[2020-04-12 22:31] VITALS: BP 148/83
== END 2020-04-12 22:20 | disposition other institution (70) ==
LOC: ER 18:27
DX: S01.01XA Laceration without foreign body of scalp, initial encounter (principal); S06.4X0A Epidural hemorrhage without loss of consciousness, initial encounter; W01.0XXA Fall on same level from slipping, tripping and stumbling without subsequent striking against object, initial encounter; Y93.01 Activity, walking, marching and hiking; Y92.002 Bathroom of unspecified non-institutional (private) residence as the place of occurrence of the external cause; I10 Essential (primary) hypertension; K21.9 Gastro-esophageal reflux disease without esophagitis; G62.9 Polyneuropathy, unspecified; M54.9 Dorsalgia, unspecified; G89.29 Other chronic pain; Z20.828 Contact with and (suspected) exposure to other viral communicable diseases
CPT/HCPCS: 12004; 36415; 70450; 80053; 85025; 85610; 90471; 90714; 93005; 99284; J7030; U0002

== ENCOUNTER 2021-03-11 10:33 | Emergency (ER) | payer MEDICARE ==
[~2021-03-11] VITALS: Ht 160 cm; Wt 66.7 kg
[2021-03-11] MEDS ORDERED: SODIUM CHLORIDE 0.9% 1000ML 1,000 ML IV STA (11:39)
[2021-03-11 11:58] LABS: BASOPHILS % 0.2 % (0.0-1.0); EOSINOPHILS # (AUTO) 0.1 (0.0-0.4); EOSINOPHILS % 1.8 % (0.0-6.0); HEMATOCRIT 32.7 % (38.2-49.6); HEMOGLOBIN 11.9 g/dL (14.0-18.0); LYMPHOCYTES # (AUTO) 0.6 (1.0-3.2); LYMPHOCYTES % 9.3 % (18.0-39.1); MEAN CORPUSCULAR HEMOGLOBIN 34.1 pg (28-32); MEAN CORPUSCULAR HGB CONC 36.4 g/dL (31-35); MEAN CORPUSCULAR VOLUME 93.7 fL (81-99); MONOCYTES # (AUTO) 0.6 (0.2-0.8); NEUTROPHILS % 79.4 % (38.7-80.0); PLATELET COUNT 251 x10e3/uL (140-360); RED BLOOD COUNT 3.49 x10e6/uL (4.3-5.7); RED CELL DISTRIBUTION WIDTH 11.9 % (11.7-14.4)
[2021-03-11 12:04] LABS: CLARITY,URINE CLEAR (CLEAR); COLOR,URINE YELLOW (YELLOW); KETONES,URINE TRACE (NEGATIVE); LEUKOCYTE ESTERASE ,URINE NEGATIVE (NEGATIVE); MUCUS,URINE FEW (RARE); NITRITE,URINE NEGATIVE (NEGATIVE); PROTEIN,URINE DIPSTICK NEGATIVE (NEGATIVE); URINE UROBILINOGEN 0.2 mg/dL (0.2 - 1); WBC,URINE (MAN) 0-5 /HPF (0-5)
[2021-03-11 12:08] LABS: INR 0.98; PROTHROMBIN TIME 13.4 seconds (11.9-14.5)
[2021-03-11 12:09] LABS: PARTIAL THROMBOPLASTIN TIME 25.5 seconds (23.8-35.5)
[2021-03-11 12:19] LABS: ALBUMIN 3.8 g/dL (3.5-5.0); ALBUMIN/GLOBULIN RATIO 1.4 (0.8-2.0); ANION GAP 11.7 mmol/L (8-16); CALCIUM 9.2 mg/dL (8.4-10.2); CREATININE, SERUM 1.12 mg/dL (0.72-1.25); POTASSIUM 4.7 mmol/L (3.5-5.1)
[2021-03-11 12:25] LABS: CREATINE KINASE MB 10.9 ng/mL (0-5.0)
== END 2021-03-11 14:30 | disposition home or self-care (01) ==
LOC: ER 10:57
DX: R42 Dizziness and giddiness (principal); E87.1 Hypo-osmolality and hyponatremia; I10 Essential (primary) hypertension; G62.9 Polyneuropathy, unspecified; K21.9 Gastro-esophageal reflux disease without esophagitis; M54.9 Dorsalgia, unspecified; G89.29 Other chronic pain
CPT/HCPCS: 36415; 70450; 71045; 80053; 81001; 82550; 82553; 83880; 84484; 85025; 85610; 85730; 93005; 99284; J7030

== ENCOUNTER 2022-07-09 19:38 | Emergency (ER) | payer MEDICARE ==
[~2022-07-09] VITALS: Ht 160 cm; Wt 66.7 kg
[2022-07-09] MEDS ORDERED: SODIUM CHLORIDE 0.9% 1000ML 1,000 ML IV STA (19:59)
== END 2022-07-09 20:19 | disposition home or self-care (01) ==
LOC: ER 19:40
DX: I95.9 Hypotension, unspecified (principal); I10 Essential (primary) hypertension; K21.9 Gastro-esophageal reflux disease without esophagitis; M54.9 Dorsalgia, unspecified; G89.29 Other chronic pain; Z87.820 Personal history of traumatic brain injury
CPT/HCPCS: 99281